=== PATIENT | female | born 1950 | race Caucasian/White ===

== ENCOUNTER 2017-04-17 10:27 | Emergency (ER) | payer OTHER ==
--- NOTE | 2017-04-17 11:57 | ED Physician Chart ---
ED Chief Complaint/HPI - Patient Information Date Seen:: 04/17/17 Time Seen:: 10:35 Chief Complaint:: Left Leg Pain History of Present Illness:: onset x one day of intermittent MS type Left Leg pain; no trauma, H/As, neck pain, C/P, SOB, Abd. Pain, A/N/V/D/C, fever, chills, urinary s/s or gait changes Allergies:: Allergies Allergy/AdvReac Type Severity Reaction Status Date / Time No Known Allergies Allergy Verified 04/17/17 10:32 Vitals:: Vital Signs - 8 hr 04/17/17 10:32 Temp 98.1 F HR 68 RR 16 BP 146/77 O2 Sat % 98 Historian:: Patient Review:: Nurse's Note Reviewed ED Review of Systems - Review of Systems General/Constitutional: No fever, No chills, No weight loss, No weakness, No diaphoresis, No edema, No loss of appetite Skin: No skin lesions, No rash, No bruising Head: No headache, No light-headedness Eyes: No loss of vision, No pain, No diplopia ENT: No earache, No nasal drainage, No sore throat, No tinnitus Neck: No neck pain, No swelling, No thyromegaly, No stiffness, No mass noted Cardio Vascular: No chest pain, No palpitations, No PND, No orthopnea, No edema Pulmonary: No SOB, No cough, No sputum, No wheezing GI: No nausea, No vomiting, No diarrhea, No pain, No melena, No hematochezia, No constipation, No hematemesis G/U: No dysuria, No frequency, No hematuria Musculoskeletal: Bone or joint pain, No back pain, Muscle pain Endocrine: No polyuria, No polydipsia Psychiatric: No prior psych history, No depression, No anxiety, No suicidal ideation Hematopoietic: No bruising, No lymphadenopathy Allergic/Immuno: No urticaria, No angioedema Neurological: No syncope, No focal symptoms, No weakness, No paresthesia, No headache, No seizure, No dizziness, No confusion, No vertigo ED Past Medical History - Past Medical History Obtainable: Yes Past Medical History: No significant medical hx Family History: None Social History: Non Smoker, No Alcohol, No Drug Use, Employed Surgical History: None Psychiatricy History: None Medication: Reviewed Family Medical History - Family Member mother History Unknown: Yes Hx Family Cancer: No Hx Family Hypertension: No Hx Family Diabetes: No Hx Family Seizures: No Hx Family AIDS: No Hx Family COPD: No ED Physical Exam - Physical Examination General/Constitutional: Awake, Well-developed, well-nourished, Alert, No distress, GCS 15, Non-toxic appearing, Ambulatory Head: Atraumatic Eyes: Lids, conjuctiva normal, PERRL, EOMI Skin: Nl inspection, No rash, No skin lesions, No ecchymosis, Well hydrated, No lymphadenopathy ENMT: External ears, nose nl, Nasal exam nl, Lips, teeth, gums nl Neck: Nontender, Full ROM w/o pain, No JVD, No nuchal rigidity, No bruit, No mass, No stridor Respiratory: Nl effort/Exclusion, Clear to Auscultation, No Wheeze/Rhonchi/Rales Cardio Vascular: RRR, No murmur, gallop, rubs, NL S1 S2 GI: No tenderness/rebounding/guarding, No organomegaly, No hernia, Normal BS's, Nondistended, No mass/bruits, No McBurney tenderness : No CVA tenderness Extremities: No tenderness or effusion, Full ROM, normal strength in all extremities, No edema, Normal digits & nails Neuro/Psych: Alert/oriented, DTR's symmetric, Normal sensory exam, Normal motor strength, Judgement/insight normal, Mood normal, Normal gait, No focal deficits Misc: Normal back, No paraspinal tenderness ED Labs/Radiology/EKG Results - Radiology Results Comments:: U/S: Negative for DVT ED Septic Shock - . Is Septic Shock (SBP<90, OR Lactate>4 mmol\L) present?: No - <6hrs of presentation: Vital Signs: Vital Signs - 8 hr 04/17/17 10:32 Temp 98.1 F HR 68 RR 16 BP 146/77 O2 Sat % 98 ED Reassessment (Disposition) - Reassessment Reassessment:: pt is asymptomatic upon discharge Reassessment Condition:: Improved - Diagnosis Diagnosis:: Leg Pain; Muscle Spasms; Left Leg Sprain and Strain - Aftercare/Follow up Instructions Aftercare/Follow-Up Instructions:: Counseled pt regarding lab results/diagnosis & need follow up, Refer to Discharge Instructions, Counseled pt & family regarding lab results/diagnosis & need follow up - Patient Disposition Discharge/Transfer:: Home Condition at Disposition:: Stable, Improved (RTER prn if existing s/s reoccur and/or get worse and/or any other new s/s occur; U/S care instructions; ACIs given for all above Dx; Refer to Orthopedist/[employer] [employer] [facility]; F/U with PMD in one day or prn; RTER prn if concerned)
--- NOTE | 2017-04-17 15:56 | Diagnostic Imaging Report ---
Exam: Ultrasound examination left lower extremity. History Real-time ultrasound summation left lower extremity was performed multiple planes utilizing Doppler technique. The study demonstrates normal compressibility and augmentation of deep venous system throughout. IMPRESSION: No evidence of deep system thrombosis left lower extremity.
== END 2017-04-17 11:55 | disposition home or self-care (01) ==
LOC: ER 10:27
DX: S86.912A Strain of unspecified muscle(s) and tendon(s) at lower leg level, left leg, initial encounter (principal); X58.XXXA Exposure to other specified factors, initial encounter; Y93.89 Activity, other specified; Y92.89 Other specified places as the place of occurrence of the external cause; Y99.8 Other external cause status
CPT/HCPCS: 93971-TC-LT; Z7502

== ENCOUNTER 2017-10-11 12:02 | Emergency (ER) | payer OTHER ==
--- NOTE | 2017-10-11 13:15 | Diagnostic Imaging Report ---
Left wrist (3 views) HISTORY: Pain, trauma No acute bony abnormalities are seen within the carpal and metacarpal region. No fractures. The remainder of the left hand cannot be evaluated due to flexion. IMPRESSION: 1. No acute bony abnormalities. In the presence of recent trauma and persistent symptoms, a repeat radiograph in 5-7 days may be helpful for detection of a subtle or occult fracture.
--- NOTE | 2017-10-11 15:06 | Transfer Summary ---
DATE OF TRANSFER: 10/11/2017 ADDENDUM She came to the ER for fall and injury to the left wrist. X-rays were done of the left wrist, which were found to be within normal limits. There was no evidence of any fracture, injury, hematoma, or hair fracture. There was no evidence of any swelling. The patient was discharged to be continued on usual supportive care in the form of Tylenol or Advil as and when needed, Tylenol not more than 3 tablets a day, Advil not more than 4 tablets a day to be taken after food. The patient should take rest for a couple of days and the patient should be fine. FINAL DIAGNOSES: History of fall from a chair and injury to the left wrist without any fracture and no evidence of any swelling or any tear in the skin, etc. Treatment is supportive care in the form of mild analgesics like Tylenol or Advil as and when needed, not more than 2 or 3 pills a day. [facility]# [id number]
--- NOTE | 2017-10-11 23:09 | ER Physician Documentation ---
DATE OF SERVICE: 10/11/2017 EMERGENCY ROOM EVALUATION AND TREATMENT The patient came to the Emergency Room. She is full code. No known allergies. 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 She fell on the left wrist, but clinically there is no evidence of any , she still has pain in the left wrist and a little pain in the left gluteal area, but there is no evidence of any clinical fracture in the gluteal area. No evidence of any fracture on the wrist area, but she wants an x-ray to be done. HISTORY OF PRESENT ILLNESS: The patient fell down and hurt her left wrist. There is no clinical evidence of any fracture. There is no swelling. There is no evidence of any bleeding, no evidence of any hematoma. Vital signs appear to be stable. REVIEW OF SYSTEMS: The patient's review of systems is essentially benign and negative. CONSTITUTIONAL: Negative. No fever, no chills, no rigors. BONES AND JOINTS: She has pain in the left wrist and there is minimal if any swelling in the left wrist area, but there is no clinical evidence of fractures. She can move all her fingers. She can move the wrist backwards and forwards and in all directions without any problems. CHEST: No complaints of pneumonia, TB, pulmonary embolism, COPD, emphysema, bronchitis. CARDIAC: No history of any chest pain, infarction, rheumatic fever, valvular heart disease, pericardial disease. ENDOCRINE REYES: No history of diabetes mellitus, hypo or hyperthyroidism. GASTROINTESTINAL REYES: No history of diarrhea or abdominal pain. A 12-point review of system otherwise is benign and negative. No history of any cancers. SOCIAL HISTORY: No history of any smoking. No history of taking any other drugs or marijuana, etc. FAMILY HISTORY: Benign and negative. Has a granddaughter who was present with her in the room. PHYSICAL EXAMINATION: GENERAL: The patient appears to be awake, alert, oriented, not in any acute cardiorespiratory distress. HEENT: Conjunctivae is pink. Sclerae is white. HEENT is normal. Jugular pressure is normal. Carotids are normal. There is no bruit heard over the carotid arteries. No edema, no cyanosis, no petechia, no ecchymosis. No clinical evidence of fracture. Moves all the extremities well. CENTRAL NERVOUS SYSTEM: Within normal limits. LUNGS: Clear with no rales, no rhonchi, no bronchial breathing. HEART: Normal heart sounds. No fourth heart sound. Second heart sound is physiologically split. Third heart sound is absent. GASTROINTESTINAL REYES: Essentially within normal limits. Liver and spleen not enlarged. No free fluid in the abdominal cavity. CLINICAL IMPRESSION: The patient has a fall injury to the left wrist, but clinically I do not think any evidence of fracture. 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 We will get an x-ray done and if it is negative, we will send the patient home. JOB# [id number]
== END 2017-10-11 13:51 | disposition home or self-care (01) ==
LOC: ER 12:02
DX: S69.92XA Unspecified injury of left wrist, hand and finger(s), initial encounter (principal); W07.XXXA Fall from chair, initial encounter; Y93.89 Activity, other specified; Y92.89 Other specified places as the place of occurrence of the external cause; Y99.8 Other external cause status
CPT/HCPCS: 73110-TC-LT; Z7502